=== PATIENT | female | born 1990 | race Caucasian/White ===

== ENCOUNTER 2020-05-03 07:42 | Inpatient (IN) | payer MEDICAID, SELFPAY ==
[~2020-05-03] VITALS: Ht 154.9 cm; Wt 68.9 kg
[2020-05-03] MEDS ORDERED: OXYTOCIN/0.9 % SODIUM CHLORIDE 1,000 ML IV SCH (22:30)
[2020-05-03] MEDS ORDERED: TERBUTALINE SULFATE 1 MG/ML VIAL SUBCUT ONE (22:30)
[2020-05-03] MEDS ORDERED: DINOPROSTONE 10 MG SUPP VG ONE (22:30)
[2020-05-03] MEDS ORDERED: LR 1,000 ML IV SCH (22:30)
[2020-05-03 23:01] LABS: BASOPHILS % (AUTO) 0.4 % (0.0-2.0); EOSINOPHILS % (AUTO) 0.1 % (0.0-4.0); HEMATOCRIT 28.1 % (36-48); HEMOGLOBIN 8.9 g/dL (12.0-16.0); LYMPHOCYTES # (AUTO) 2.7 K/uL (1.0-5.5); LYMPHOCYTES % (AUTO) 29.5 % (20.5-51.5); MEAN CORPUSCULAR HEMOGLOBIN 21 pg (27-31); MEAN CORPUSCULAR HGB CONC 32 % (32-36); MEAN CORPUSCULAR VOLUME 66 fL (79.0-98.0); MONOCYTES # (AUTO) 0.5 K/uL (0.0-1.0); MONOCYTES % (AUTO) 5.2 % (1.7-9.3); NEUTROPHILS # (AUTO) 5.8 K/uL (1.8-7.7); NEUTROPHILS % (AUTO) 64.8 % (40.0-70.0); PLATELET COUNT (AUTO) 333 K/uL (130-430); RED BLOOD CELL COUNT(AUTO) 4.24 MIL/uL (4.2-6.2); RED CELL DISTRIBUTION WIDTH 18.3 % (9.0-15.0)
[2020-05-04 00:01] VITALS: BP_SYST 110
[2020-05-04] MEDS ORDERED: FLU VACC QS2020-21 (6 mos & up) 0.5 ML/SYRINGE I.M. PRN (00:15)
[2020-05-04] MEDS: MORPHINE SULFATE 10 MG/ML VIAL IVP PRN ×3 (02:19→10:41)
[2020-05-04] MEDS ORDERED: ROPIVACAINE HCL/PF 0.2% 200 ML ONE (11:56)
[2020-05-04] MEDS ORDERED: fentaNYL CITRATE/PF 100 MCG/2 ML AMP ONE (11:56)
[2020-05-04] MEDS ORDERED: ONDANSETRON HCL 4 MG/2 ML VIAL IVP PRN (14:15)
[2020-05-04] MEDS ORDERED: FENT2mCg/mL-ROPIVA0.2%/NS EPID 200 ML EP SCH (14:15)
[2020-05-04] MEDS ORDERED: DIPHENHYDRAMINE INJ 50 MG/ML VIAL IVP PRN (14:15)
[2020-05-04] MEDS ORDERED: DIPH-TET-PERTUS Vaccine 0.5 ML VIAL (ADACEL) I.M. PRN (16:30)
[2020-05-04] MEDS ORDERED: OXYTOCIN/0.9 % SODIUM CHLORIDE 1,000 ML IV ONE (16:30)
[2020-05-04] MEDS ORDERED: LANOLIN 7 GM OINT. TP PRN (16:30)
[2020-05-04] MEDS ORDERED: OXYTOCIN/0.9 % SODIUM CHLORIDE 1,000 ML IV SCH (16:30)
[2020-05-04] MEDS ORDERED: ANUSOL 1 EA SUPP.RECT (PREPARATION H) RC PRN (16:30)
[2020-05-04] MEDS ORDERED: DOCUSATE SODIUM 100 MG CAPSULE PO PRN (16:30)
[2020-05-04] MEDS ORDERED: WITCH HAZEL LEAF 1 MED.PAD MED.PAD TP PRN (16:30)
[2020-05-04] MEDS ORDERED: TEMAZEPAM 15 MG CAPSULE PO PRN (16:30)
[2020-05-04] MEDS ORDERED: MEASLES,MUMPS&RUBELLA VACC/PF 12500 UNIT/0.5 ML VIAL SUBQ PRN (16:30)
[2020-05-04] MEDS ORDERED: SENNOSIDES/DOCUSATE SODIUM 1 TAB TABLET(SENOKOT-S) PO PRN (16:30)
[2020-05-04] MEDS ORDERED: RHO(D) IMMUNE GLOBULIN/MALTOSE 1500 UNITS/1.3 ML (WINHRO) IM PRN (16:30)
[2020-05-04] MEDS ORDERED: HYDROCORTISONE 0.5%, 28.35 GM TOPICAL CREAM TP PRN (16:30)
[2020-05-04] MEDS ORDERED: DERMOPLAST SPRAY TP PRN (16:30)
[2020-05-04] MEDS ORDERED: OXYCODONE/ACETAMINOPHEN 5-325 TABLET PO PRN (17:30)
[2020-05-04] MEDS: IBUPROFEN 600 MG TABLET PO SCH (17:57)
[2020-05-05] MEDS: IBUPROFEN 600 MG TABLET PO SCH ×4 (06:25→17:45)
[2020-05-05] MEDS: OXYCODONE/ACETAMINOPHEN 5-325 TABLET PO PRN ×2 (07:48→15:04)
[2020-05-05 08:00] LABS: HEMATOCRIT 25.4 % (36-48); HEMOGLOBIN 8.1 g/dL (12.0-16.0)
== END 2020-05-05 19:10 | disposition home or self-care (01) | DRG 560 ==
LOC: OBSVTOIN 22:00 → SPU 22:00
PROVIDERS: ADMIT Obstetrics & Gynecology; ATTEND Obstetrics & Gynecology
PROC: 10E0XZZ Delivery of Products of Conception, External Approach (ICD-10-PCS; principal; 2020-05-04)
PROC: 3E0R3BZ Introduction of Anesthetic Agent into Spinal Canal, Percutaneous Approach (ICD-10-PCS; 2020-05-04)
PROC: 00HU33Z Insertion of Infusion Device into Spinal Canal, Percutaneous Approach (ICD-10-PCS; 2020-05-04)
PROC: 3E0P7VZ Introduction of Hormone into Female Reproductive, Via Natural or Artificial Opening (ICD-10-PCS; 2020-05-04)
DX: O60.14X0 Preterm labor third trimester with preterm delivery third trimester, not applicable or unspecified (principal); Z3A.38 38 weeks gestation of pregnancy; Z37.0 Single live birth; O70.0 First degree perineal laceration during delivery; Z20.822 Contact with and (suspected) exposure to COVID-19; O99.02 Anemia complicating childbirth
CPT/HCPCS: 36415; 85018-TC; 85025; 86592; 86886; 86900; 86901; J2270; J2590; J3010